=== PATIENT | male | born 1950 | race Caucasian/White ===

== ENCOUNTER 2021-03-07 10:17 | Outpatient (CLI) | payer OTHER ==
[~2021-03-07 10:17] MED LIST: DIOVAN HCT 160-1 TA1 PO; NADOLOL40 MG PO
== END 2021-03-07 10:33 | disposition home or self-care (01) ==
LOC: SONOGRAMA 10:17
PROVIDERS: ATTEND Specialist
DX: R97.20 Elevated prostate specific antigen [PSA] (principal)

== ENCOUNTER 2021-05-10 16:09 | Emergency (ER) | payer OTHER ==
[~2021-05-10] VITALS: Ht 177.8 cm; Wt 104.3 kg
[2021-05-10] MEDS ORDERED: NORVASC10 MG (16:27)
[2021-05-10] MEDS ORDERED: DIOVAN320 MG (16:27)
== END 2021-05-10 22:18 | disposition home or self-care (01) ==
LOC: ER 16:09
DX: M25.562 Pain in left knee (principal); R60.9 Edema, unspecified

== ENCOUNTER 2023-04-19 11:46 | Emergency (ER) | payer OTHER ==
[~2023-04-19] VITALS: Ht 177.8 cm; Wt 102.1 kg
[~2023-04-19 11:46] MED LIST changes: +DIOVAN320 MG; +NORVASC10 MG
[2023-04-19] MEDS ORDERED: IRBESARTAN150 MG PO (12:40)
== END 2023-04-19 14:29 | disposition home or self-care (01) ==
LOC: ER 11:46
DX: L52 Erythema nodosum (principal); Z88.8 Allergy status to other drugs, medicaments and biological substances; Z91.012 Allergy to eggs; I10 Essential (primary) hypertension
CPT/HCPCS: 36415; 96365; 99283; J2930